=== PATIENT | female | born 1985 | race Caucasian/White ===

== ENCOUNTER 2016-12-05 14:03 | Emergency (ER) | payer OTHER ==
[~2016-12-05] VITALS: Ht 157.5 cm; Wt 53.0 kg
[2016-12-05 14:07] VITALS: BP 109/69; PULSE 72; RESP 14; TEMP 98.2; O2SAT 99
--- NOTE | 2016-12-05 14:57 | PD ---
HPI Chief Complaint: Exposure to Blood/Body Fluids Time Seen by Provider: 14:55 Travel History International Travel<30 days: No Contact w/Intl Traveler<30days: No Traveled to known affect area: No History of Present Illness HPI 30-year-old female presents to the emergency department after being struck with a dirty needle in her left index finger at work today at [employer] in the [place]. Denies history of HIV or hepatitis C. Reports being up-to-date on tetanus and hep B vaccination. Does not know source patient's HIV or hep C status. Denies paresthesias or loss of vision, decreased range of motion and decreased strength to the affected finger. Denies fever, chills, nausea, vomiting. No known allergies. No other modifying factors or associated signs and symptoms. PFSH Past Medical History ?: Not LMP: 11/12/2016 Social History Tobacco Use: No Allergies-Medications (Allergen,Severity, Reaction): Coded Allergies: No Known Allergies (Unverified , 12/05/16) Reported Meds & Prescriptions Reported Meds & Active Scripts Active No Active Prescriptions or Reported Medications Review of Systems Except as stated in HPI: all other systems reviewed are Neg Physical Exam Narrative GENERAL: Well-nourished, well-developed female patient, in no acute distress SKIN: Warm and dry. Point, puncture wound to left hand distal aspect of the second digit just below the nail bed; no erythema, no edema, no drainage. HEAD: Atraumatic. Normocephalic. EYES: Pupils equal and round. No scleral icterus. No injection or drainage. ENT: Mucosa pink and moist. Airway patent. NECK: Trachea midline. CARDIOVASCULAR: Regular rate. RESPIRATORY: No accessory muscle use. GASTROINTESTINAL: Flat. MUSCULOSKELETAL: No obvious deformities. No clubbing. No cyanosis. No edema. NEUROLOGICAL: Awake and alert. Oriented 3. No obvious cranial nerve deficits. Motor grossly within normal limits. Normal speech. PSYCHIATRIC: Appropriate mood and affect; insight and judgment normal. Data Data Last Documented VS Vital Signs Date Time Temp Pulse Resp B/P Pulse Ox O2 Delivery O2 Flow Rate FiO2 12/05/16 14:07 98.2 72 14 109/69 99 MDM Medical Decision Making Medical Screen Exam Complete: Yes Emergency Medical Condition: Yes Medical Record Reviewed: Yes Differential Diagnosis Needlestick injury, exposure to blood, exposure to bodily fluid Narrative Course 30-year-old female, [employer] employee, with dirty needlestick injury to the left index finger. Protocol initiated. Patient is up-to-date on vaccinations. Source patient hepatitis and HIV status unknown. Instructed patient to follow- up with employee med. Patient is medically cleared and stable for discharge. Discussed reasons to return to the emergency department. Instructed patient to follow up with primary care provider. Patient agrees with treatment plan. The patients vital signs are stable and the patient is stable for outpatient follow- up and treatment. Patient discharged home, stable and in no acute distress. Diagnosis Primary Impression: Needle stick injury of finger of left hand Qualified Code: S61.239A - Needle stick injury of finger of left hand, initial encounter Additional Impression: Employee exposure to blood Referrals: Employ Med Primary Care Physician Patient Instructions: General Instructions, Needle Stick Injuries (ED), Postexposure Prophylaxis (ED) Departure Forms: Tests/Procedures, Work Release Enter return to work date: Dec 05, 2016 Additional Instructions: Follow blood exposure protocol instructions Follow-up with employee med Follow-up with primary care Return to emergency department for worsening of symptoms Med/Other Pt SpecificInfo: No Meds Exist/No RX given Scripts No Active Prescriptions or Reported Meds Disposition: DISCHARGE HOME Condition: Stable Haylee Barry Dec 05, 2016 14:57
== END 2016-12-05 15:28 | disposition home or self-care (01) ==
LOC: NEPB 14:03
DX: S61.231A Puncture wound without foreign body of left index finger without damage to nail, initial encounter (principal); Z77.21 Contact with and (suspected) exposure to potentially hazardous body fluids; W46.1XXA Contact with contaminated hypodermic needle, initial encounter; Y92.234 Operating room of hospital as the place of occurrence of the external cause; Y99.0 Civilian activity done for income or pay
CPT/HCPCS: 99282